=== PATIENT | female | born 1950 | race Caucasian/White ===

== ENCOUNTER 2022-03-07 22:12 | Inpatient (IN) | payer OTHER ==
[2022-03-07 22:18] VITALS: BMI 33.3
[2022-03-07 22:53] LABS: BASO % 0.6 % (0-2.0); EOS % 0.1 % (0-4.5); HEMATOCRIT 47.5 % (32.4-45.2); HEMOGLOBIN 15.2 GM/dL (10.7-15.3); LYMPH % 12.8 % (8-40); MCHC 32.1 g/dl (32.0-36.0); MEAN CELL VOLUME 84.1 fl (80-96); MEAN PLT VOLUME 7.9 fl (7.5-11.1); MONO % 8.8 % (3.8-10.2); NEUT % 77.7 % (42.8-82.8); PLATELET COUNT 211 10^3/uL (134-434); RBC 5.65 M/mm3 (3.60-5.2); RDW 13.6 % (11.6-15.6); WHITE BLOOD COUNT 9.5 K/mm3 (4.0-10.0)
[2022-03-07 22:59] LABS: INR 1.58 (0.83-1.09); PROTHROMBIN TIME (PATIENT) 18.2 SEC (9.7-13.0)
[2022-03-07 23:02] LABS: ACTIVATED PTT 37.6 SECONDS (25.2-36.5)
[2022-03-07 23:14] LABS: ALBUMIN 3.8 g/dl (3.4-5.0); MAGNESIUM 2.1 mg/dL (1.8-2.4)
[2022-03-07 23:18] LABS: BILIRUBIN,TOTAL 0.4 mg/dL (0.2-1); CREATININE 1.1 mg/dL (0.55-1.3)
[2022-03-07 23:19] LABS: N-TERMINAL BNP 1024.6 pg/ml (5-125)
[2022-03-08] MEDS ORDERED: ACETAMINOPHEN 1000 MG/100 ML BAG IVPB ONE (03:16)
[2022-03-08] MEDS ORDERED: REMDESIVIR 200 MG in SODIUM CHLORIDE 250 ML IVPB ONE ×2 (05:00→10:00)
[2022-03-08 09:27] LABS: EPI CELLS 4 /uL (0-25.1); HYALINE CASTS 1 /uL (0-3.1); URINE APPEARANCE TURBID; URINE BACTERIA 35 /uL (0-1359); URINE BILIRUBIN NEGATIVE (NEGATIVE); URINE COLOR DK YELLOW; URINE GLUCOSE (UA) NEGATIVE (NEGATIVE); URINE KETONE TRACE (NEGATIVE); URINE LEUK ESTERASE NEGATIVE (NEGATIVE); URINE NITRITE NEGATIVE (NEGATIVE); URINE PROTEIN 1+ (NEGATIVE); URINE RBC 93 /uL (0-23.9); URINE UROBILINOGEN 0.2 mg/dL (0.2-1.0); URINE WBC 4 /uL (0-25.8)
[2022-03-08] MEDS ORDERED: ENOXAPARIN NA (PORCINE) 40 MG/0.4 ML DISP.SYRIN SQ SCH (10:00)
[2022-03-09] MEDS ORDERED: ATENOLOL 50 MG TABLET (FP) PO SCH (10:00)
[2022-03-09] MEDS ORDERED: ENALAPRIL MALEATE 10 MG TABLET PO SCH (10:00)
[2022-03-09] MEDS: DEXAMETHASONE SOD PHOSPHATE 10 MG/1 ML VIAL IVPUSH SCH (10:04)
[2022-03-09] MEDS: APIXABAN 5 MG TABLET PO SCH ×2 (10:05→21:49)
[2022-03-09] MEDS: DIGOXIN 0.25 MG TABLET PO SCH (10:05)
[2022-03-09] MEDS: REMDESIVIR 100 MG in SODIUM CHLORIDE 270 ML IVPB SCH (10:06)
[2022-03-09 13:44] LABS: ALBUMIN 3.5 g/dl (3.4-5.0); BLOOD UREA NITROGEN 28.5 mg/dL (7-18); CALCIUM 8.8 mg/dL (8.5-10.1); MAGNESIUM 2.2 mg/dL (1.8-2.4)
[2022-03-09 13:46] LABS: PHOSPHOROUS 3.5 mg/dL (2.5-4.9)
[2022-03-09 13:48] LABS: BILIRUBIN,TOTAL 0.4 mg/dL (0.2-1); TOT PROT 6.6 g/dl (6.4-8.2)
[2022-03-09 13:53] LABS: N-TERMINAL BNP 504.2 pg/ml (5-125)
[2022-03-10 08:37] LABS: HEMATOCRIT 45.1 % (32.4-45.2); HEMOGLOBIN 14.8 GM/dL (10.7-15.3); MCH 27.3 pg (25.7-33.7); MCHC 32.9 g/dl (32.0-36.0); MEAN CELL VOLUME 82.8 fl (80-96); MEAN PLT VOLUME 8.7 fl (7.5-11.1); PLATELET COUNT 253 10^3/uL (134-434); RBC 5.45 M/mm3 (3.60-5.2); RDW 13.7 % (11.6-15.6); WHITE BLOOD COUNT 6.7 K/mm3 (4.0-10.0)
[2022-03-10 08:50] LABS: ALBUMIN 3.6 g/dl (3.4-5.0); CALCIUM 9.2 mg/dL (8.5-10.1)
[2022-03-10 08:52] LABS: BLOOD UREA NITROGEN 27.7 mg/dL (7-18)
[2022-03-10 08:53] LABS: CREATININE 0.9 mg/dL (0.55-1.3)
[2022-03-10 08:54] LABS: BILIRUBIN,TOTAL 0.4 mg/dL (0.2-1); TOT PROT 6.8 g/dl (6.4-8.2)
[2022-03-10] MEDS: DEXAMETHASONE SOD PHOSPHATE 10 MG/1 ML VIAL IVPUSH SCH (10:10)
[2022-03-10] MEDS: REMDESIVIR 100 MG in SODIUM CHLORIDE 270 ML IVPB SCH (10:12)
[2022-03-10] MEDS: ENALAPRIL MALEATE 10 MG TABLET PO SCH (10:12)
[2022-03-10] MEDS: APIXABAN 5 MG TABLET PO SCH ×2 (10:12→21:55)
[2022-03-10] MEDS: ATENOLOL 50 MG TABLET (FP) PO SCH (10:12)
[2022-03-10] MEDS: DIGOXIN 0.25 MG TABLET PO SCH (14:17)
[2022-03-11 07:52] LABS: HEMOGLOBIN 14.4 GM/dL (10.7-15.3); MCH 26.7 pg (25.7-33.7); MCHC 32.1 g/dl (32.0-36.0); MEAN CELL VOLUME 83.2 fl (80-96); MEAN PLT VOLUME 8.2 fl (7.5-11.1); PLATELET COUNT 246 10^3/uL (134-434); RDW 13.7 % (11.6-15.6); WHITE BLOOD COUNT 9.3 K/mm3 (4.0-10.0)
[2022-03-11 08:03] LABS: ALBUMIN 3.5 g/dl (3.4-5.0); CALCIUM 9.2 mg/dL (8.5-10.1)
[2022-03-11 08:09] LABS: BILIRUBIN,TOTAL 0.4 mg/dL (0.2-1); CREATININE 0.9 mg/dL (0.55-1.3); TOT PROT 6.6 g/dl (6.4-8.2)
[2022-03-11] MEDS ORDERED: REMDESIVIR 100 MG in SODIUM CHLORIDE 250 ML IVPB SCH (10:00)
[2022-03-11] MEDS ORDERED: DIGOXIN 0.125 MG TABLET PO SCH (10:00)
[2022-03-11] MEDS: DEXAMETHASONE SOD PHOSPHATE 10 MG/1 ML VIAL IVPUSH SCH (10:47)
[2022-03-11] MEDS: ENALAPRIL MALEATE 10 MG TABLET PO SCH (10:47)
[2022-03-11] MEDS: APIXABAN 5 MG TABLET PO SCH (10:47)
[2022-03-11] MEDS: ATENOLOL 50 MG TABLET (FP) PO SCH (10:48)
[2022-03-11 11:02] VITALS: RESP 18; TEMP 97.7
[2022-03-11 15:24] VITALS: BP 133/66; PULSE 67
== END 2022-03-11 19:09 | disposition home or self-care (01) | DRG 137 ==
LOC: JER 22:12 → JERBED 23:55 → OBSVTOIN 03-08 03:03 → J4W 03-08 16:32
PROVIDERS: ADMIT Internal Medicine; ATTEND Internal Medicine
PROC: XW033E5 Introduction of Remdesivir Anti-infective into Peripheral Vein, Percutaneous Approach, New Technology Group 5 (ICD-10-PCS; principal; 2022-03-08)
DX: U07.1 COVID-19 (principal); R55 Syncope and collapse; I48.91 Unspecified atrial fibrillation; I11.0 Hypertensive heart disease with heart failure; I50.31 Acute diastolic (congestive) heart failure; R56.9 Unspecified convulsions; W18.30XA Fall on same level, unspecified, initial encounter; Y92.041 Bathroom in boarding-house as the place of occurrence of the external cause
CPT/HCPCS: 0241U-QW; 36415; 70450-TC; 71045-TC-FY; 80053; 80061; 80162; 81003; 82728; 83036; 83615; 83735; 83880; 84100; 84484; 85025; 85027; 85610; 85730; 86140; 86850; 86900; 86901; 93005; 93010; 93306-TC; 93880-TC; 99285-25; C9399; G0378; J1100